=== PATIENT | female | born 1975 | race Caucasian/White ===

== ENCOUNTER 2025-04-14 21:43 | Emergency (ER) | payer MEDICARE, OTHER ==
[~2025-04-14] VITALS: Ht 165.1 cm; Wt 121.0 kg
[~2025-04-14 21:43] MED LIST: SERT100T PO
[2025-04-14 21:51] VITALS: TEMP 36.8; O2SAT 98
[2025-04-14 22:24] LABS: BASOPHILS % 0.4 % (0.0-2.0); EOSINOPHILS % 0.5 % (0.0-5.0); HEMATOCRIT. 42.0 % (36.0-48.0); HEMOGLOBIN. 13.9 g/dL (12.0-16.0); LYMPHOCYTES % 21.1 % (20.0-50.0); MEAN PLATELET VOLUME 9.6 fl (7.4-10.4); MONOCYTES % 6.5 % (2.0-8.0); NEUTROPHILS % 71.5 % (40.0-76.0); PLATELET 177 x1000/uL (130-400); RED BLOOD CELL COUNT 5.03 mill/uL (4.2-5.4); RED CELL DISTRIBUTION WIDTH 15.1 % (11.6-14.6)
[2025-04-14 22:38] LABS: CREATININE 0.7 mg/dL (0.6-1.0); UREA NITROGEN BLOOD 14 mg/dL (9-23)
[2025-04-14 22:39] LABS: TROPONIN I HIGH SENSITIVITY < 4 ng/L (3.0-34)
[2025-04-14 23:27] LABS: CLARITY URINE CLOUDY (CLEAR); COLOR URINE YELLOW (YELLOW); GLUCOSE URINE NEGATIVE (NEGATIVE); KETONES URINE NEGATIVE (NEGATIVE); LEUKOCYTE ESTERASE URINE NEGATIVE (NEGATIVE); NITRITE URINE NEGATIVE (NEGATIVE); OCCULT BLOOD URINE NEGATIVE (NEGATIVE); PH URINE 6.0 (4.5-8.0); PROTEIN URINE NEGATIVE (NEGATIVE); SPECIFIC GRAVITY URINE 1.021 (1.005-1.030); UROBILINOGEN URINE 1.0 E.U./dL (0.2-1.0)
[2025-04-14 23:47] VITALS: TEMP 98.5
[2025-04-14] MEDS: ACETAMINOPHEN 500MG TABLET PO SCH (23:47)
[2025-04-14 23:50] LABS: SQUAMOUS EPITHELIAL CELL URINE 3+ /lpf (RARE/1+)
[2025-04-14 23:51] LABS: RBC URINE 0-2 /hpf (0-2)
[2025-04-14 23:52] LABS: BACTERIA URINE 1+
[2025-04-15] MEDS ORDERED: CEPH500T MT (01:01)
[2025-04-15 01:40] VITALS: BP 153/93; PULSE 55; RESP 18; O2SAT 97
== END 2025-04-15 01:41 | disposition home or self-care (01) ==
LOC: ER 21:43
DX: N39.0 Urinary tract infection, site not specified (principal); R07.89 Other chest pain; J45.909 Unspecified asthma, uncomplicated; E78.00 Pure hypercholesterolemia, unspecified; Z87.442 Personal history of urinary calculi; Z79.899 Other long term (current) drug therapy; Z98.890 Other specified postprocedural states
CPT/HCPCS: 36415; 71045; 80048; 81003; 84484; 85025; 93005; 99285